=== PATIENT | female | born 1995 | race African-American/Black ===

== ENCOUNTER 2016-06-10 16:25 | Emergency (ER) | payer BC, MEDICAID, OTHER ==
[~2016-06-10] VITALS: Ht 152.4 cm; Wt 65.0 kg
[~2016-06-10 16:25] MED LIST: MACR100C PO; METR-1 PO; Z.0.BCPILL PO
[2016-06-10 16:34] VITALS: BP 123/59; PULSE 100; RESP 18; TEMP 98.1; O2SAT 100
[2016-06-10 16:37] VITALS: BP 123/59; PULSE 97; RESP 18; O2SAT 100
[2016-06-10] MEDS ORDERED: ACETAMINOPHEN/HYDROcodone 325 MG/5 MG TAB PO ONE (16:45)
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
[2016-06-10] MEDS ORDERED: DICL75TA PO (18:45)
[2016-06-10] MEDS ORDERED: ROBA500T PO (18:45)
== END 2016-06-10 19:47 | disposition home or self-care (01) ==
LOC: NEPE 16:25
DX: S13.4XXA Sprain of ligaments of cervical spine, initial encounter (principal); M54.5 Low back pain; V43.52XA Car driver injured in collision with other type car in traffic accident, initial encounter; Y99.8 Other external cause status
CPT/HCPCS: 70450; 72110; 72125; 84703

== ENCOUNTER 2017-02-15 17:26 | Emergency (ER) | payer BC, MEDICAID ==
[~2017-02-15] VITALS: Ht 152.4 cm; Wt 52.4 kg
[~2017-02-15 17:26] MED LIST changes: +DICL75TA PO; +ROBA500T PO
[2017-02-15 17:27] VITALS: BP 144/84; PULSE 61; RESP 16; TEMP 98.9; O2SAT 100
--- NOTE | 2017-02-15 17:51 | PD ---
Physical Exam Date Seen by Provider: Feb 15, 2017 Time Seen by Provider: 17:49 Narrative 21-year-old black female presents to emergency department with dental pain after having a tooth extracted today by her dentist. She is currently taking clindamycin and Lortab. She states the pain is severe. No fever or chills. Vital signs reviewed. Pt waiting for bed placement. Data Data Last Documented VS Vital Signs Date Time Temp Pulse Resp B/P (MAP) Pulse Ox O2 Delivery O2 Flow Rate FiO2 02/15/17 17:27 98.9 61 16 144/84 (104) 100 Room Air [facility] Medical Record Reviewed: No Supervised Visit with JAIRO: Thanh Ellison Feb 15, 2017 17:51
[2017-02-15] MEDS ORDERED: IBUP1TAB7 PO (18:32)
--- NOTE | 2017-02-15 18:38 | PD ---
HPI Chief Complaint: Oral / Dental Pain or Problem Time Seen by Provider: 18:08 Travel History International Travel<30 days: No Contact w/Intl Traveler<30days: No Traveled to known affect area: No History of Present Illness HPI 21-year-old female presents to the emergency room for pain control. Patient had her right wisdom tooth pulled 3 days ago and her left upper molar pulled today. She was prescribed Lortab but the Lortab is not helping. States she took 800 mg ibuprofen after taking Lortab and got some relief. Her dentist told her there is nothing else he could do for her. He cleared her for infection. Patient was on a week's worth of amoxicillin prior to having the tooth pulled and then 3 days of clindamycin. She finished clindamycin yesterday. Denies fever, chills, nausea, and vomiting. States the pain is so severe she cannot eat or sleep. PFSH Past Medical History Diminished Hearing: No Immunizations Current: Yes LMP: TODAY : 0 Social History Alcohol Use: Yes (on occasion) Tobacco Use: No Substance Use: No Allergies-Medications (Allergen,Severity, Reaction): Coded Allergies: No Known Allergies (Verified , 07/11/15) Reported Meds & Prescriptions Reported Meds & Active Scripts Active Ibuprofen 800 Mg Tab 800 Mg PO Q8H PRN Robaxin (Methocarbamol) 500 Mg Tab 500 Mg PO TID Diclofenac Sodium DR (Diclofenac Sodium) 75 Mg Tabdr 75 Mg PO BID PRN Macrobid (Nitrofurantoin Macrocrystals) 100 Mg Cap 100 Mg PO BID Flagyl (Metronidazole) 500 Mg Tab 500 Mg PO BID 7 Days TAKE UNTIL GONE Reported Control Pills (Miscellaneous Medication) Tab 1 Tab PO DAILY Review of Systems Except as stated in HPI: all other systems reviewed are Neg Physical Exam Narrative GENERAL: Well-nourished, well-developed female in no acute distress. Afebrile. Ambulatory. SKIN: Focused skin assessment warm/dry. HEAD: Normocephalic. EYES: No scleral icterus. No injection or drainage. DENTAL: No loose or chipped teeth. No malocclusion. Well-healed recently pulled tooth in the right lower jaw. Packing in place in the left upper jaw. NECK: Supple, trachea midline. No JVD or lymphadenopathy. CARDIOVASCULAR: Regular rate and rhythm without murmurs, gallops, or rubs. RESPIRATORY: Breath sounds equal bilaterally. No accessory muscle use. Data Data Last Documented VS Vital Signs Date Time Temp Pulse Resp B/P (MAP) Pulse Ox O2 Delivery O2 Flow Rate FiO2 02/15/17 17:27 98.9 61 16 144/84 (104) 100 Room Air Orders Orders Ketorolac Inj (Toradol Inj) (02/15/17 18:45) MDM Medical Decision Making Medical Screen Exam Complete: Yes Emergency Medical Condition: Yes Medical Record Reviewed: Yes Differential Diagnosis Dentalgia, postsurgical pain, abscess Narrative Course 21-year-old female presents to the emergency room for pain control. Patient had a tooth pulled 3 days ago and another tooth pulled today. States her prescribed Lortab is not helping. Physical exam reveals well-healed gingiva and the right lower area. No drainage or edema. There is packing in place in the left upper jaw. I do not feel comfortable removing this as patient just had a tooth pulled today. I do not suspect abscess or infection. Patient was on 1 week of amoxicillin in 3 days ago clindamycin. She'll be given Toradol the ED and discharged with prescription for Motrin. Told to follow up with her dentist or return for worsening symptoms. She understands and agrees to plan. Diagnosis Primary Impression: Pain, dental Referrals: Dentist Additional Instructions: Rest and drink plenty of fluids. Take prescribed Lortab as directed, as needed for pain. Do not drink alcohol or drive taking this medication. Take Motrin as directed, as needed for pain. Follow-up with a dentist. Return to the emergency room for worsening symptoms. Scripts Ibuprofen (Ibuprofen) 800 Mg Tab 800 MG PO Q8H Y for Pain/Inflammation, #21 TAB 0 Refills Prov: Juan Antonio Mckoy MD 02/15/17 Disposition: 01 DISCHARGE HOME Condition: Stable Swathi Casillas Feb 15, 2017 18:38
[2017-02-15] MEDS ORDERED: HYDR-3580 PO (18:42)
[2017-02-15] MEDS ORDERED: KETOROLAC TROMETHAMINE 60 MG/2 ML (IM) VIAL IM ONE (18:45)
== END 2017-02-15 18:59 | disposition home or self-care (01) ==
LOC: NEPD 17:26
DX: K08.89 Other specified disorders of teeth and supporting structures (principal)
CPT/HCPCS: 96372; 99284; J1885